=== PATIENT | male | born 1955 | race Caucasian/White ===

== ENCOUNTER 2019-11-09 18:51 | Emergency (ER) | payer OTHER, SELFPAY ==
[2019-11-09 19:05] VITALS: BP 143/84; PULSE 78; RESP 16; TEMP 37.2; O2SAT 96
--- NOTE | 2019-11-09 19:24 | ED.SKABFB ---
HPI - Skin/Abscess/Foreign Bdy General Chief complaint: Skin/Abscess/Foreign Body Stated complaint: injury Time Seen by Provider: 11/09/19 19:24 Source: patient and RN notes reviewed Mode of arrival: ambulatory Limitations: no limitations History of Present Illness HPI narrative: This is a 64 years old male presented office for evaluation of possible skin infection of his right leg. He accidentally fell and scraped his legs about a week ago and his has been tented the wound. He reports there was a lot of blood initially however he did not seek care immediately because he thought his could take care of it. Yesterday, she noticed some discharge/drainage from the wound she dressed it up for him, then this morning he noticed swelling, redness and pain. He did not want to seek care however his is forcing him to come here. TD is unknown. Related Data Home Medications Medication Instructions Recorded Confirmed albuterol sulfate INHALATION 11/09/19 aspirin 11/09/19 atorvastatin 11/09/19 carvedilol 11/09/19 chlorthalidone 11/09/19 doxazosin mg 11/09/19 omega [id number] oil [Fish Oil] cap PO 11/09/19 potassium chloride meq PO 11/09/19 quinapril mg 11/09/19 Allergies Allergy/AdvReac Type Severity Reaction Status Date / Time Penicillins Allergy Intermediate Rash Verified 11/09/19 19:08 Review of Systems Review of Systems: Narrative: CONSTITUTIONAL: Denies fever, chills CARDIOVASCULAR: Denies chest pain, palpitation. Reports feet edema. RESPIRATORY: Denies dyspnea GASTROINTESTINAL: Denies abdominal pain, nausea, vomiting SKIN: Reports skin abrasion on bilateral lower legs MUSCULOSKELETAL: Reports right leg pain with swelling NEUROLOGIC: Denies numbness. [facility], [place] Past Medical History Medical History (Updated 11/09/19 @ 19:46 by JOSE CRUZ Mike) CAD (coronary artery disease) HLD (hyperlipidemia) HTN (hypertension) Comments At time of signature, I agree with nursing past medical, surgical, social and family history. There is no relevant family history pertinent to the presenting complaint. Exam Narrative: Exam Narrative: GENERAL: This is a well-nourished, well-developed patient, in no apparent distress. CARDIOVASCULAR: Regular rate and rhythm without murmurs, gallops, or rubs. RESPIRATORY: Clear to auscultation. Breath sounds equal bilaterally. No wheezes, rales, or rhonchi. GASTROINTESTINAL: Abdomen soft, non-tender, nondistended. Bowel sounds are active. No guarding. SKIN:Left knee noted heal wound with scab, right lower leg near ankle noted scab with underlying edematous, erythema, warmth, tenderness to palpation with clear demarcation; concerns for secondary cellulitis. NEURO: awake, alert, and oriented to person, place and time. There were no obvious focal neurologic abnormalities. Steady gait EXTREMITIES: Normal range of motion of knees and ankles. Trace edematous noted in both feet. [place] Coma Scale Eye Opening: Spontaneous 4 [place] Coma Scale Motor: Obeys Commands 6 [place] Coma Scale Verbal: Oriented 5 Course Vital Signs Vital signs: Vital Signs Temperature 99.0 F 11/09/19 19:05 Pulse Rate 78 11/09/19 19:05 Respiratory Rate 16 11/09/19 19:05 Blood Pressure 143/84 H 11/09/19 19:05 Pulse Oximetry 96 11/09/19 19:05 Temperature 99.0 F 11/09/19 19:05 Pulse Rate 78 11/09/19 19:05 Respiratory Rate 16 11/09/19 19:05 Blood Pressure 143/84 H 11/09/19 19:05 Pulse Oximetry 96 11/09/19 19:05 MDM - Skin/Abscess/Foreign Bdy MDM Narrative Medical decision making narrative: Discharge instructions reviewed with patient, as well as provided in writing per nursing staff. The instructions also include specific and strict return/GO TO THE ER as well as f/u information. All questions have been answered, and the patient deny any further questions with discharge and discharge plan. Differential Diagnosis Differential diagnosis: Likely absc
[2019-11-09] MEDS: TETANUS,DIPHTHERIA,AC PERTUSSIS ADULT 0.5 ML (ADACEL) IM (19:38)
--- NOTE | 2019-11-10 09:23 | PC.NURSE ---
Prescription was sent to [facility] and pt jessie Cuellar on the [facility]- Verbal prescription called into [facility] for Clindamycin 300mg 1C Po Q8h X7d #21 0 refills per Mralen Garcia. Yahaira Hathaway ([id number]- 11/10/2019)
== END 2019-11-09 19:54 | disposition home or self-care (01) ==
PROVIDERS: Emergency Provider Nurse Practitioner; PCP Registered Nurse
DX: L03.115 Cellulitis of right lower limb (principal); I25.10 Atherosclerotic heart disease of native coronary artery without angina pectoris; E78.5 Hyperlipidemia, unspecified; I10 Essential (primary) hypertension; Z23 Encounter for immunization; Z79.82 Long term (current) use of aspirin; W19.XXXA Unspecified fall, initial encounter
CPT/HCPCS: 90471; 90715; 99213; G0463

== ENCOUNTER 2021-01-07 12:18 | Outpatient (CLI) | payer MEDICARE, SELFPAY ==
--- NOTE | ~2021-01-07 | CT_ITS ---
EXAMINATION: CT abdomen pelvis wo con DATE: 01/07/2021 13:18 INDICATION: Hematuria dysuria TECHNIQUE: Computed tomography (CT) of the abdomen and pelvis was performed without intravenous contr ast. The dose-length product (DLP) was 1206.31 mGy-cm. Automated exposure control and iterative recon struction technique were employed. COMPARISON: None FINDINGS: Minimal dependent atelectasis is present in the lung bases. The heart size is normal. The l iver, spleen, gallbladder, and adrenal glands are normal. Punctate calcifications throughout the panc reas are consistent with chronic pancreatitis. 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 There is a 7.9 cm cyst of the left kidney lower pole. The right kidney is unremarkable. No ston es are identified in the kidneys, ureters, or bladder. There is no hydronephrosis or hydroureter. The re is a diverticulum of left posterolateral bladder wall with wall thickening and surrounding inflamm atory change. No pathologically enlarged abdominal or pelvic lymph nodes are identified. There is no free intraperitoneal gas or evidence of bowel obstruction. The appendix is normal. Colonic diverticul osis is present without evidence of diverticulitis. There is severe lumbar spondylosis. IMPRESSION: 1. Inflamed diverticulum of the left posterolateral bladder wall. Reviewed, dictated and finalized at location B.
== END 2021-01-07 12:19 | disposition home or self-care (01) ==
PROVIDERS: PCP Registered Nurse; Visit Provider Nurse Practitioner Family
DX: R30.0 Dysuria (principal); R31.9 Hematuria, unspecified; R10.9 Unspecified abdominal pain
CPT/HCPCS: 74176

== ENCOUNTER 2022-08-22 08:09 | Outpatient (CLI) | payer OTHER, SELFPAY ==
--- NOTE | 2022-08-25 10:55 | WPDSIXMINUTE ---
Six Minute Walk Procedure Procedure Performed Pulmonary Stress Test (6 min walk) Six Minute Walk Six Minute Walk: DATE of SERVICE: 08/22/2022 REQUESTING: Noemy Cespedes NP REASON : COPD; this is a pre-pulmonary rehab test. SIX MINUTE WALK This test was conducted per ATS guidelines. The test was conducted with the patient breathing room air. Initial saturation was 95% on room air and initial pulse was 89 beats per minute. The patient walked for 6 minutes with a 5 second rest due to leg pain. Distance walked is 900 ft/ 274.3 m. The lowest saturation recorded was 86% at 2 minutes 28 seconds. Saturation was at 88% or below from 1 minute 52 seconds until 4 minutes 48 seconds, a total of 2 minutes 56 seconds. During recovery as the patient was resting, saturation increased to 95%. The highest pulse was 106 beats per minute while saturation was 88%. During recovery pulse returned to baseline, 93 beats per minute. IMPRESSION: This walk study shows desaturation to 86% with sustained hypoxemia for 2 minutes 56 seconds during exercise. He recovers at rest. This patient would benefit from a Home Oxygen study. Distance walked is slightly below expected, 300 m.
== END 2022-08-22 08:10 | disposition home or self-care (01) ==
PROVIDERS: PCP Registered Nurse
DX: J44.9 Chronic obstructive pulmonary disease, unspecified (principal); J96.01 Acute respiratory failure with hypoxia
CPT/HCPCS: 94618

== ENCOUNTER 2022-11-21 09:30 | Outpatient (RCR) | payer OTHER, SELFPAY | END 2022-12-05 11:28 | disposition home or self-care (01) | LOC: ANHCPREHAB 09:30 | PROVIDERS: PCP Registered Nurse | DX: J44.9 Chronic obstructive pulmonary disease, unspecified (principal); J96.01 Acute respiratory failure with hypoxia | CPT/HCPCS: 94625 ==

== ENCOUNTER 2024-07-12 11:13 | Outpatient (CLI) | payer OTHER, SELFPAY ==
--- NOTE | ~2024-07-12 | US_ITS ---
Limited Abdominal Sonogram: Real-time sonographic imaging of the right upper quadrant was performed. Clinical History: Right upper quadrant pain Findings: The liver appears echogenic, with no evidence of mass lesion or bile duct dilatation. Main portal vein demonstrates normal direction of flow. The gallbladder is well distended, and appears no rmal with no evidence of gallstone or wall thickening. The common bile duct measures 5 mm. The visua lized pancreas, aorta, and IVC are unremarkable. Impression: Diffuse fatty infiltration of the liver. Associated probable hepatomegaly. Reviewed, dictated and finalized at location M. F CLERK Impression: Diffuse fatty infiltration of the liver. Associated probable hepatomegaly.
== END 2024-07-12 11:14 | disposition home or self-care (01) ==
LOC: MICIMG 11:14
PROVIDERS: PCP Registered Nurse; Visit Provider Registered Nurse
DX: K76.0 Fatty (change of) liver, not elsewhere classified (principal)
CPT/HCPCS: 76705